=== PATIENT | male | born 1985 ===

== ENCOUNTER → 2023-11-18 | Outpatient (CLI) | payer OTHER ==
[2023-11-18 11:13] VITALS: BP 132/82; PULSE 76; RESP 15; TEMP 98.4
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
== END | disposition home or self-care (01) ==
LOC: PNWHC3 10:21
PROVIDERS: ATTEND Specialist
DX: M51.36 Other intervertebral disc degeneration, lumbar region (principal)
CPT/HCPCS: 99211